=== PATIENT | female | born 1985 | race Two or more races ===

== ENCOUNTER 2017-12-07 14:08 | Emergency (ER) | payer MEDICAID ==
[~2017-12-07] VITALS: Ht 152.4 cm; Wt 68.0 kg
[~2017-12-07 14:08] MED LIST: ACETAMINOPHEN-1 EAC1 ORAL; NKM
--- NOTE | 2017-12-07 14:47 | Emergency Room Report ---
History of Present Illness General Chief Complaint: Abdominal Pain Source: Medical Record Present Illness HPI 32-year-old female patient presents ER complaining of sharp suprapubic abdominal pain for the past 4 days. Reports symptoms began on Sunday, states that they radiate to her right hip and back. Denies recent injury or trauma. Reports normal bowel and bladder movements, denies constipation or diarrhea, states had one painful to onset of symptoms a few days ago. Reports last menstrual period was a month ago, denies taking control medications, states she is sexually monogamous relationship with her , reports last sexual activity Sunday, reports one episode of vomiting prior to abdominal pain on Sunday. Denies concern for STI. Reports able to pass flatus. Denies diarrhea. Denies blood in stool. Denies dysuria, hematuria, vaginal discharge. Denies fever, chest pain, shortness of breath. reports history of gallbladder removal. Also complaining of small lump in her left lower quadrant of abdomen. States the present for over a year. states awaiting imaging referral from primary care provider. Denies pain radiating down legs. Allergies: Coded Allergies: ACETAMINOPHEN (Unverified Allergy, Unknown, 03/17/14) ASPIRIN (Unverified Allergy, Unknown, 03/17/14) Patient History Past Medical History: see triage record Last Menstrual Period: 11/06/2017 Reviewed Nursing Documentation: PMH: Agreed; PSxH: Agreed Nursing Documentation-PMH Past Medical History: No History, Except For Hx Cardiac Problems: No Hx Hypertension: No Hx Pacemaker: No Hx Asthma: No Hx COPD: No Hx Diabetes: No Hx Cancer: No Hx Gastrointestinal Problems: Yes - Cholecystecomy Hx Dialysis: No History Of Psychiatric Problem: No Hx Neurological Problems: No Hx Cerebrovascular Accident: No Hx Seizures: No Review of Systems All Other Systems: negative except mentioned in HPI Physical Exam Vital Signs Date Time Temp Pulse Resp B/P (MAP) Pulse Ox O2 Delivery O2 Flow Rate FiO2 12/07/17 14:15 98.0 73 14 115/67 98 Room Air 98.1 Sp02 EP Interpretation: reviewed, normal General Appearance: well appearing, no apparent distress, alert, GCS 15, non- toxic Head: normocephalic, atraumatic Eyes: bilateral eye normal inspection, bilateral eye PERRL ENT: hearing grossly normal, normal pharynx, no angioedema, normal voice, uvula midline, moist mucus membranes Neck: full range of motion Respiratory: lungs clear, normal breath sounds, no rhonchi, no respiratory distress, no accessory muscle use, no wheezing, speaking full sentences Cardiovascular #1: regular rate, rhythm, no edema Gastrointestinal: non tender, soft, no mass, non-distended, no guarding, no rebound, other - negative Aguilar, negative obturator, negative Rovsing; left lower quadrant: small palpable subcutaneous mass, no erythema or edema, no tenderness to palpation Genitourinary: no CVA tenderness Musculoskeletal: back normal, digits/nails normal, gait/station normal, normal range of motion, non-tender, no calf tenderness, Raymundo's Sign negative, other - no spinous process tendernes, no bony depression Neurologic: alert, oriented x3, responsive, motor strength/tone normal, SLR negative, sensory intact, cerebellar normal, normal gait, speech normal Psychiatric: mood/affect normal Skin: no rash Medical Decision Making PA Attestation Dr. Quevedo is my supervising Physician whom patient management has been discussed with. Diagnostic Impression: Primary Impression: Abdominal pain Additional Impression: Subcutaneous mass ER Course Pt presents to ED c/o abdominal pain radiating to her back and hip. DDX considered but are not limited to sprain, strain, cauda equina, epidural abscess, AAA, spinal cord compression, kidney stones, menstrual cramps, gastritis, constipation, fracture, dislocation, sprain, strain, hernia, UTI, . Patient able to ambulate independently without difficulty, no leg length discrepancy, low suspicion for fracture or dislocation. Low suspicion for cauda equina, no bowel or bladder incontinence or retention. No fever, nontoxic appearing, no radiation of pain, low suspicion for epidural mass. No abdominal TTP, no blood pressure elevation, nontoxic appearing, low suspicion for AAA. No abdominal tenderness to palpation, negative Rovsing, negative obturator, low suspicion for appendicitis VITAL SIGNS are WNL, patient is afebrile Ordered pain medication, imaging, labs. ER COURSE: Small palpable mass noted on left lower quadrant. will order CT to rule out incarcerated hernia and due to pain complaints. Pain medication provided. patient states she is able to take ibuprofen, does not have an allergy to ibuprofen. UA unremarkable, low suspicion for UTI, urine negative, discuss results with patient. CT abdomen pelvis shows no acute intra-abdominal process, 15 mm diameter soft tissue attenuation nodule, umbilical hernia. Discuss results with the patient. Provided patient with copy of results. Instructed patient to followup with PCP and discuss results of report with patient, discuss need for further treatment and referral. informed patient To take results and discuss with primary care provider, patient states she has follow up appointment next week and will discuss treatment at that time. ER precautions given, continue to take ibuprofen for pain, apply lidocaine to back for pain symptoms. Return to ER for new or worsening of symptoms. DISCHARGE: -Rx provided for ibuprofen -Rx provided for Lidocaine patch At this time pt. is stable for d/c to home. At this time patient is resting comfortably, in no acute distress, nontoxic appearing, smiling and talking without difficulty. Will provide printed patient care instructions, and any necessary prescriptions. Patient instructed to follow with primary care provider for further treatment and referral as needed. Care plan and follow up instructions have been discussed with the patient prior to discharge. Patient reports understanding and agreement to treatment plan. Patient questions asked and answered. ER precautions given, patient instructed to return to ER immediately for any new or worsening of symptoms. - Please note that this Emergency Department Report was dictated using [employer] Accessprinted forms proofreader technology software, occasionally this can lead to erroneous entry secondary to interpretation by the dictation equipment. Labs Test 12/07/17 14:20 Urine Color Pale yellow Urine Appearance Clear Urine pH 6 (4.5-8.0) Urine Specific [place] 1.015 (1.005-1.035) Urine Protein Negative (NEGATIVE) Urine Glucose (UA) Negative (NEGATIVE) Urine Ketones Negative (NEGATIVE) Urine Blood 2+ (NEGATIVE) Urine Nitrite Negative (NEGATIVE) Urine Bilirubin Negative (NEGATIVE) Urine Urobilinogen Normal MG/DL (0.0-1.0) Urine Leukocyte Esterase Negative (NEGATIVE) Urine RBC 5-10 /HPF (0 - 2) Urine WBC 0-2 /HPF (0 - 2) Urine Squamous Epithelial Cells Many /LPF (NONE/OCC) Urine Bacteria Moderate /HPF (NONE) Urine HCG, Qualitative Negative (NEGATIVE) CT/MRI/US Diagnostic Results CT/MRI/US Diagnostic Results : Imaging Test Ordered: CT abdomen pelvis Impression Impression: No acute abdominal process demonstrated 15 mm diameter soft tissue attenuation nodule seen in the left suprapubic subcutaneous fat appearance nonspecific, with a large differential. Possibilities include postinflammatory scarring, acute abscess, myxoma, granuloma anulare. Less likely a skin appendage lesion as it is located relatively deep. Mesenchymal tumors, nodular fasciitis, fibromatosis, less likely neoplasm also possibilities. Ultrasound or MRI may be useful for better characterization if clinically indicated Surgically absent gallbladder Incidentally noted small umbilical hernia, contains only fat Last Vital Signs Date Time Temp Pulse Resp B/P (MAP) Pulse Ox O2 Delivery O2 Flow Rate FiO2 12/07/17 14:15 98.0 73 14 115/67 98 Room Air 98.1 Status: improved Disposition: HOME, SELF-CARE Condition: Stable Scripts Ibuprofen* (MOTRIN*) 600 Mg Tablet 600 MG ORAL Q8H PRN for For Pain, #30 TAB 0 Refills Prov: Shun Burton 12/07/17 Lidocaine (Lidocaine) 1 Each Adh..patch 5 % TP DAILY for 7 Days, #7 PATCH Prov: Shun Burton 12/07/17 Referrals: NOT CHOSEN IPA/,REFERRING (PCP) Patient Instructions: Abdominal Pain, Adult Additional Instructions: Followup with primary care provider in 3 -[address] results at that time. Discuss further imaging needed for subcutaneous mass noted on CT. Drink plenty of fluids. Discuss evaluation for diabetes. Advised patient on rest, ice, and heat. Take medications as directed. Patient questions asked and answered. ER precautions given, patient instructed to return to ER immediately for any new or worsening of symptoms. Shun Burton Dec 07, 2017 14:47
[2017-12-07 14:50] LABS: APPEARANCE,URINE CLEAR; BILIRUBIN, URINE NEGATIVE (NEGATIVE); COLOR,URINE PALE YELLOW; GLUCOSE, URINE (UA) NEGATIVE (NEGATIVE); KETONES,URINE NEGATIVE (NEGATIVE); LEUKOCYTE ESTERASE ,URINE NEGATIVE (NEGATIVE); NITRITE,URINE NEGATIVE (NEGATIVE); PH,URINE 6 (4.5-8.0); PROTEIN,URINE NEGATIVE (NEGATIVE); UROBILINOGEN,URINE NORMAL MG/DL (0.0-1.0)
--- NOTE | 2017-12-07 15:52 | Diagnostic Imaging Report ---
Indication: Suprapubic abdominal pain for the past 4 days Technique: Spiral acquisitions obtained through the abdomen and pelvis. No oral contrast utilized, per emergency room physician request No IV contrast utilized, per referring physician request.. Multiplanar reconstructions were generated. Total dose length product 630.76 mGycm. CTDIvol(s) 12.77 mGy. Dose reduction achieved using automated exposure control Comparison: None Findings: Normal appendix. No evidence of diverticulosis or diverticulitis. No small bowel distention. Small umbilical hernia contains only fat. Distal esophagus is unremarkable. The stomach is distended with food. The duodenum is unremarkable. No free or loculated intraperitoneal gas or fluid is evident. 15 mm soft tissue attenuation nodule is seen within the subcutaneous fat of the upper pelvic wall to the left of midline. There is suggestion of slight infiltration of the surrounding fat Lack of IV contrast limits assessment of the solid organs. The liver is grossly unremarkable. The gallbladder is surgically absent. No biliary ductal dilatation. The pancreas, spleen, adrenals, kidneys are grossly unremarkable. No retroperitoneal or mesenteric mass or adenopathy. No pelvic mass or adenopathy. 2.4 cm presumed dominant follicle seen in the left ovary. The included lung bases are clear. The bones are unremarkable. Impression: No acute abdominal process demonstrated 15 mm diameter soft tissue attenuation nodule seen in the left suprapubic subcutaneous fat appearance nonspecific, with a large differential. Possibilities include postinflammatory scarring, acute abscess, myxoma, granuloma anulare. Less likely a skin appendage lesion as it is located relatively deep. Mesenchymal tumors, nodular fasciitis, fibromatosis, less likely neoplasm also possibilities. Ultrasound or MRI may be useful for better characterization if clinically indicated Surgically absent gallbladder Incidentally noted small umbilical hernia, contains only fat The CT scanner at [facility] is accredited by the [employer] [place] and the scans are performed using protocols designed to limit radiation exposure to as low as reasonably achievable to attain images of sufficient resolution adequate for diagnostic evaluation.
[2017-12-07] MEDS ORDERED: IBUPROFEN600 MG ORAL (16:42)
[2017-12-07] MEDS ORDERED: LIDOCAINE700 M1 TP (16:42)
[2017-12-07 16:49] VITALS: BP 115/67
== END 2017-12-07 16:49 | disposition home or self-care (01) ==
LOC: EMR 14:28
DX: R10.32 Left lower quadrant pain (principal); R19.04 Left lower quadrant abdominal swelling, mass and lump; Z88.6 Allergy status to analgesic agent; M54.9 Dorsalgia, unspecified; Z90.49 Acquired absence of other specified parts of digestive tract; K42.9 Umbilical hernia without obstruction or gangrene
CPT/HCPCS: 74176; 81003; 81025; 87086; 99284